=== PATIENT | male | born 1970 | race Caucasian/White ===

== ENCOUNTER 2017-02-17 04:53 | Inpatient (IN) | payer BC ==
[~2017-02-17] VITALS: Ht 182.9 cm; Wt 95.7 kg
--- NOTE | 2017-02-17 05:09 | NUR ---
IV PLACED/EKG DONE, MONITOR SHOWS NSR, PO2=97% ON ROOM AIR.
[2017-02-17] MEDS ORDERED: MORPHINE SULFATE 2 MG/1 ML DISP.SYRIN IV ONE (05:15)
[2017-02-17] MEDS ORDERED: ONDANSETRON 4 MG/2 ML VIAL IV ONE (05:15)
[2017-02-17] MEDS ORDERED: CLOPIDOGREL 75 MG TABLET PO ONE (05:15)
[2017-02-17] MEDS ORDERED: NITROGLYCERIN OINT 1 GM PACKET TP ONE ×2 (05:15→05:21)
[2017-02-17] MEDS ORDERED: CLOP75TA2 PO (05:16)
[2017-02-17] MEDS ORDERED: OXYC-34 PO (05:16)
[2017-02-17] MEDS ORDERED: ONDANSETRON 4 MG/2 ML VIAL ONE (05:21)
[2017-02-17] MEDS ORDERED: CLOPIDOGREL 75 MG TABLET ONE (05:21)
[2017-02-17] MEDS ORDERED: MORPHINE SULFATE 4 MG/1 ML DISP.SYRIN ONE (05:21)
[2017-02-17 05:22] LABS: HEMATOCRIT 49.4 % (40.0-50.0); HEMOGLOBIN 16.2 g/dL (14.0-18.0); MEAN CORPUSCULAR HGB CONC 33 g/dL (32.0-37.0); MEAN CORPUSCULAR VOLUME 100.7 fL (82.0-92.0); PLATELET COUNT (AUTO) 193 K/uL (150-450); RED BLOOD CELL COUNT(AUTO) 4.91 MIL/uL (4.70-6.10); RED CELL DISTRIBUTION WIDTH 14.1 % (11.5-14.5); WHITE BLOOD COUNT (AUTO) 8.5 K/uL (4.0-11.2)
[2017-02-17 05:36] LABS: LYMPHOCYTES % (MANUAL) 42 % (20-40); MONOCYTES % (MANUAL) 6 % (2-10); NEUTROPHILS % (MANUAL) 50 % (42-75)
[2017-02-17 05:37] LABS: PLATELET ESTIMATE ADEQUATE
[2017-02-17 05:42] LABS: ALBUMIN 4.1 g/dL (3.4-5.0); BILIRUBIN,DIRECT 0.1 mg/dL (0.0-0.2); BILIRUBIN,TOTAL 0.5 mg/dL (0.2-1.0); CALCIUM 9.1 mg/dL (8.5-10.1); POTASSIUM 3.2 mmol/L (3.5-5.1); TOTAL PROTEIN, SERUM 8.2 g/dL (6.4-8.2)
--- NOTE | 2017-02-17 06:08 | NUR ---
SBAR REPORT TO CARMELINA RN, BELONGINGS LIST, ADMIT ORDER WRITTEN, MONITOR SHOWS NSR, ,PT TO RM 214 VIA GUERNEY/MONITOR. NO SKIN BREAKDOWN NOTED.
[2017-02-17] MEDS ORDERED: ATOR80TA PO (06:12)
[2017-02-17] MEDS ORDERED: DOXE50CA4 PO (06:12)
[2017-02-17] MEDS ORDERED: CYCL-343 PO (06:12)
[2017-02-17] MEDS ORDERED: PANT40TA4 PO (06:12)
[2017-02-17] MEDS ORDERED: BUPR300T54 PO (06:12)
[2017-02-17] MEDS ORDERED: HYDR-3026 PO (06:12)
[2017-02-17] MEDS ORDERED: FLUT16SP BNOSTRILS (06:12)
[2017-02-17] MEDS ORDERED: CITA40TA11 PO (06:12)
[2017-02-17] MEDS ORDERED: CLOP75TA33 PO (06:12)
[2017-02-17] MEDS ORDERED: CARV3.122 PO (06:12)
[2017-02-17] MEDS ORDERED: OXYC-164 PO (06:12)
[2017-02-17] MEDS ORDERED: ZOLPIDEM 5 MG TABLET PO PRN (07:00)
[2017-02-17] MEDS: PANTOPRAZOLE SODIUM 40 MG TABLET.DR PO SCH (07:00)
[2017-02-17] MEDS ORDERED: MAGNESIUM HYDROXIDE 30 ML LIQUID UDC PO PRN (07:00)
[2017-02-17] MEDS ORDERED: MORPHINE SULFATE 2 MG/1 ML DISP.SYRIN IV PRN (07:00)
[2017-02-17] MEDS ORDERED: Z GUARD REMEDY PASTE 57 GM TUBE TOP PRN (07:00)
[2017-02-17] MEDS ORDERED: NITROGLYCERIN 0.4 MG/TAB BOTTLE SL PRN (07:00)
[2017-02-17] MEDS ORDERED: ACETAMINOPHEN 325 MG TABLET PO PRN (07:00)
[2017-02-17] MEDS ORDERED: ONDANSETRON 4 MG/2 ML VIAL IV PRN (07:00)
[2017-02-17] MEDS ORDERED: hydrALAZINE HCL 10 MG TABLET PO PRN (07:00)
--- NOTE | 2017-02-17 08:29 | NUR ---
sterilization technician noted SVT with hr rate of 154 2-3 mins. Checked pt. Pt was in the bathroom and going back to bed. As pt went back to bed HR of 110. Pt was asymptomatic. Call light is within reach.
[2017-02-17] MEDS: buPROPion XL 150 MG TAB.SR.24H PO SCH (08:53)
[2017-02-17] MEDS: hydrOXYzine HCL 25 MG TABLET PO SCH (08:53)
[2017-02-17] MEDS: CYCLOBENZAPRINE HCL 10 MG TABLET PO SCH (08:53)
[2017-02-17] MEDS: CLOPIDOGREL 75 MG TABLET PO SCH (08:54)
[2017-02-17] MEDS: FLUTICASONE PROP NASAL SPRAY 16 GM BOTTLE NS SCH (09:00)
[2017-02-17] MEDS: DOXEPIN 50 MG CAPSULE PO SCH (09:00)
[2017-02-17] MEDS ORDERED: Medication Not On Formulary EA (Bupropion Hcl (Bupropion Xl) 300 MG) PO SCH (09:00)
[2017-02-17] MEDS ORDERED: Medication Not On Formulary EA (Citalopram Hydrobromide (Citalopram Hbr) 40 MG) PO SCH (09:00)
[2017-02-17] MEDS ORDERED: CARVEDILOL 3.125 MG TABLET PO SCH (09:00)
[2017-02-17] MEDS ORDERED: CITALOPRAM 20 MG TABLET PO SCH (09:00)
--- NOTE | 2017-02-17 09:00 | NUR ---
Pt refused his medications. Discussed and explained to pt purpose of each medications and cons of not taking them. Pt continues to refuse meds. Call light is within reach.
[2017-02-17] MEDS ORDERED: CLONIDINE HCL 0.1 MG TABLET PO PRN (09:45)
[2017-02-17] MEDS ORDERED: POTASSIUM CHLORIDE 20 MEQ TAB.PRT.SR PO ONE (09:45)
[2017-02-17] MEDS: HYDROCODONE/APAP 5-325MG TABLET PO PRN ×2 (11:40→20:38)
[2017-02-17] MEDS ORDERED: CARVEDILOL 3.125 MG TABLET PO ONE (11:45)
[2017-02-17] MEDS ORDERED: LORAZEPAM 2 MG/1 ML VIAL IV PRN (11:45)
[2017-02-17 11:50] VITALS: BP 166/110
--- NOTE | 2017-02-17 12:00 | NUR ---
Pt's b/p remained elevated even after given clonidine for sbp above 160's- pt was asymptomatic . Current b/p remains high b/p 166/110 -hr of 111 and c/o severe CUMMINS. gave an extra dose of 3.125 of coreg and prn dose of apressoline as ordered per Addis for elevated b/p. Will continue to monitor patient.
--- NOTE | 2017-02-17 13:30 | NUR ---
Dr Fernandez saw pt for cardiology eval and took off nitro paste patch given by ER. Pt remains SinusTachycardia. 115. - pt c/o CUMMINS norco given for CUMMINS.
--- NOTE | 2017-02-17 15:00 | NUR ---
Pt is in no acute distress. Pt states that "he feels better." CUMMINS gone. Pt had a good 1 hr nap. New orders received from sophia SHEARER and Dr Fernandez -carried out.
[2017-02-17] MEDS: FOLIC ACID 1 MG TABLET PO SCH (15:34)
[2017-02-17] MEDS: MULTIVITAMINS,THERAPEUTIC TABLET PO SCH (15:34)
[2017-02-17] MEDS: LISINOPRIL 10 MG TABLET PO SCH (15:34)
[2017-02-17] MEDS: THIAMINE HCL 100 MG TABLET PO SCH (15:35)
[2017-02-17 16:11] VITALS: BP 155/90
[2017-02-17] MEDS: CARVEDILOL 6.25 MG TABLET PO SCH (17:47)
[2017-02-17 20:00] VITALS: BP 130/90
--- NOTE | 2017-02-17 20:30 | NUR ---
PT'S A/A/O X4,ON BED REST AND C/O BACK PAIN DUE TO HX OF BACK SURGERY IN THE PAST:NORCO 5 MG PO X1 TO PT;EDUCATED TO PT;PT VERBALIZED UNDERSTANDING AND TOLERATED WELL NOTED.UPDATED THE PLAN OF CARE TO PT;HE VERBALIZED UNDERSTANDING.KEPT COMFORT.CALL-LIGHT WITHIN REACH.TELEMETRY'S SR 80/MIN AT THIS TIME.CONTINUED MONITORING TO PT.
[2017-02-17 20:51] LABS: *BLOOD, URINE NEGATIVE (NEGATIVE); *CLARITY,URINE CLEAR (CLEAR); *COLOR,URINE DARK YELLOW (YELLOW); *KETONES,URINE 2+ (NEGATIVE); *PROTEIN,URINE 1+ (NEGATIVE); LEUKOCYTE ESTERASE ,URINE NEGATIVE (NEGATIVE); NITRITE, URINE NEGATIVE (NEGATIVE); PH,URINE 7.5 (5.0-8.0); UGLUCOSE NEGATIVE (NEGATIVE)
[2017-02-17] MEDS ORDERED: Medication Not On Formulary EA (Atorvastatin Calcium (Lipitor) 80 MG) PO SCH (21:00)
[2017-02-17] MEDS ORDERED: ATORVASTATIN 40 MG TABLET PO SCH (21:00)
[2017-02-17 21:13] LABS: *BILIRUBIN,URIN NEGATIVE (NEGATIVE)
[2017-02-17 21:14] LABS: MUCUS,URINE MANY /LPF (0-FEW); RBC,URINE 0-3 /HPF (0-3); WBC,URINE 0-3 /HPF (0-3)
[2017-02-18] VITALS: BP 123/77
--- NOTE | 2017-02-18 | NUR ---
PT'S COMFORTABLE ON BED AT THIS TIME.TELEMETRY'S SR 63/MIN.KEPT CALL-LIGHT WITHIN REACH.CONTINUED MONITORING TO PT.
[2017-02-18 04:00] VITALS: BP 129/89
--- NOTE | 2017-02-18 06:00 | NUR ---
PT'S COMFORTABLE ON BED;DENIED OF PAIN OR ANY DISCOMFORT.NO DISTRESS NOTED IN THE SHIFT.PER PT STATED THAT"I'M GOING BACK HOME TODAY";EDUCATED TO PT ABOUT THE PROCESS OF D/C;HE VERBALIZED UNDERSTANDING AND COOPERATIVE NOTED.KEPT CALL-LIGHT WITHIN REACH.TELEMETRY'S SR IN THE SHIFT.NO CHEST PAIN'S SEEN.
[2017-02-18] MEDS: PANTOPRAZOLE SODIUM 40 MG TABLET.DR PO SCH (06:13)
[2017-02-18] MEDS: HYDROCODONE/APAP 5-325MG TABLET PO PRN ×2 (06:28→12:20)
[2017-02-18 07:06] LABS: CALCIUM 9.3 mg/dL (8.5-10.1); MAGNESIUM 1.9 mg/dL (1.8-2.4); PHOSPHOROUS 2.7 mg/dL (2.5-4.9); POTASSIUM 4.1 mmol/L (3.5-5.1)
[2017-02-18 07:30] LABS: HEMOGLOBIN 15.9 g/dL (14.0-18.0); MEAN CORPUSCULAR HEMOGLOBIN 33.5 uug (27.0-31.0); MEAN CORPUSCULAR HGB CONC 33 g/dL (32.0-37.0); MEAN CORPUSCULAR VOLUME 101.2 fL (82.0-92.0); PLATELET COUNT (AUTO) 186 K/uL (150-450); RED BLOOD CELL COUNT(AUTO) 4.74 MIL/uL (4.70-6.10); RED CELL DISTRIBUTION WIDTH 14.4 % (11.5-14.5); WHITE BLOOD COUNT (AUTO) 6.9 K/uL (4.0-11.2)
[2017-02-18] MEDS: LISINOPRIL 10 MG TABLET PO SCH (08:48)
[2017-02-18] MEDS: hydrOXYzine HCL 25 MG TABLET PO SCH (08:48)
[2017-02-18] MEDS: buPROPion XL 150 MG TAB.SR.24H PO SCH (08:48)
[2017-02-18] MEDS: CLOPIDOGREL 75 MG TABLET PO SCH (08:48)
[2017-02-18] MEDS: FOLIC ACID 1 MG TABLET PO SCH (08:49)
[2017-02-18] MEDS: MULTIVITAMINS,THERAPEUTIC TABLET PO SCH (08:49)
[2017-02-18] MEDS: CYCLOBENZAPRINE HCL 10 MG TABLET PO SCH (08:49)
[2017-02-18] MEDS: THIAMINE HCL 100 MG TABLET PO SCH (08:49)
[2017-02-18] MEDS: CARVEDILOL 6.25 MG TABLET PO SCH (08:50)
[2017-02-18] MEDS: FLUTICASONE PROP NASAL SPRAY 16 GM BOTTLE NS SCH (08:50)
[2017-02-18] MEDS: DOXEPIN 50 MG CAPSULE PO SCH (08:52)
[2017-02-18] MEDS ORDERED: ASPIRIN 81 MG TAB.CHEW GT SCH (09:00)
[2017-02-18] MEDS ORDERED: ASPIRIN EC 81 MG TABLET.DR PO SCH (09:00)
[2017-02-18 10:22] LABS: EOSINOPHILS % (MANUAL) 1 % (0-8); LYMPHOCYTES % (MANUAL) 25 % (20-40); MONOCYTES % (MANUAL) 6 % (2-10); NEUTROPHILS % (MANUAL) 68 % (42-75)
[2017-02-18 10:23] LABS: PLATELET ESTIMATE ADEQUATE
[2017-02-18 10:24] LABS: ANISOCYTOSIS 1+; TEAR DROP CELLS 1+
[2017-02-18] MEDS ORDERED: Lisinopril PO (10:57)
[2017-02-18] MEDS ORDERED: Folic Acid PO (10:57)
[2017-02-18] MEDS ORDERED: THIA100T13 PO (10:57)
[2017-02-18] MEDS ORDERED: MULT-24 PO (10:57)
[2017-02-18] MEDS ORDERED: Acetaminophen PO (10:57)
[2017-02-18] MEDS ORDERED: CARV6.252 PO (10:57)
[2017-02-18] MEDS ORDERED: DOXE50CA21 PO (11:07)
[2017-02-18] MEDS ORDERED: Cyclobenzaprine Hcl PO (11:07)
[2017-02-18 11:23] VITALS: BP 125/87
--- NOTE | 2017-02-18 13:20 | NUR ---
Pt is in no acute distress. Discharge instructions given to patient - pt verbalized understanding. Pharmacist came to educate pt about new medications purpose / indications and side effects. Pt is to f/u with his own pmd re: vaccinations. IV d/c.
== END 2017-02-18 13:00 | disposition home or self-care (01) | DRG 303 ==
LOC: ER 04:57 → TELE 06:03
PROVIDERS: ADMIT Nurse Practitioner Acute Care; ATTEND Internal Medicine
DX: I25.10 Atherosclerotic heart disease of native coronary artery without angina pectoris (principal); I10 Essential (primary) hypertension; E87.6 Hypokalemia; E78.5 Hyperlipidemia, unspecified; I25.2 Old myocardial infarction; F10.10 Alcohol abuse, uncomplicated; F17.210 Nicotine dependence, cigarettes, uncomplicated; Z98.61 Coronary angioplasty status
CPT/HCPCS: 36415; 70030-TC; 71010; 83735; 84100; 85025; 85730; 87086; 93005; 93307; A4663; J2270; J2405; J3535; J8499